=== PATIENT | female | born 1995 | race Caucasian/White ===

== ENCOUNTER 2022-02-12 02:13 | Emergency (ER) | payer BC, SELFPAY ==
[2022-02-12 02:14] VITALS: BP 145/99; PULSE 114; RESP 15; TEMP 36.3; O2SAT 99; BMI 33.1
--- NOTE | 2022-02-12 02:46 | ED.VIS.GI ---
HPI HPI - GI History of Present Illness Chief Complaint: Complaint Informant: patient Abdominal Pain/Flank Pain Onset: Days (3-4) Context: Sudden Onset Timing: Continuous Quality: Aching, Cramping and - (Pressure) Location: RLQ and LLQ Worsened by: Nothing Relieved by: Nothing Nausea/Vomiting/Emesis GI Symptom: Negative for Nausea or Vomiting Diarrhea/Melena/Hematochezia GI Symptom: Negative for Diarrhea, Melena or Hematochezia Associated Symptoms Associated Symptoms: Positive for Frequency and Urgency; Negative for Dysuria or Hematuria Narrative Narrative: Patient presents with lower abdominal pain that has been getting worse over the last 3 to 4 days. Patient states it began rather suddenly. Patient states it has been constant. Patient describes as aching, pressure, and cramping. Patient states it is over her lower abdomen and radiates into her back. Patient states nothing makes it worse and nothing makes it better. Patient denies any nausea or vomiting. Patient denies any diarrhea. Patient admits to some urinary frequency and urgency. Patient denies any abnormal vaginal bleeding or discharge. PFSH PFSH Medical History no medical history no medical history Home Medications NK 02/12/22 [History Last Taken Unknown] Allergy/AdvReac Type Severity Reaction Status Date / Time No Known Allergies Allergy Verified 02/12/22 02:18 Surgical History no surgical history no surgical history Social History Smoking Status: Never smoker ROS ROS ED Constitutional Constitutional ED: Denies chills or fever(s) Eyes Eyes: Denies blurry vision or change in vision ENT ENT ED: Denies rhinorrhea or sore throat Cardiovascular Cardiovascular: Denies chest pain or palpitations Respiratory/Chest Respiratory/Chest: Denies cough or dyspnea Gastrointestinal Gastrointestinal: Reports abdominal pain; Denies nausea or vomiting Genitourinary Genitourinary ED: Reports urinary frequency; Denies dysuria or hematuria Musculoskeletal Musculoskeletal: Reports back pain; Denies neck pain Integumentary Denies abscess or rash Neurologic Neurologic: Denies headache(s) or weakness Allergic/Immunologic Allergic/Immunologic ED: Denies mouth swelling or urticaria EXAM Physical Exam Const Vital Signs: 02/12/22 02:14 Temperature 97.4 F L Temperature Source Oral Pulse Rate 114 H Respiratory Rate 15 Blood Pressure 145/99 H Blood Pressure Mean 114 Pulse Ox 99 Oxygen Delivery Method Room Air Positive well nourished and well developed General Appearance ED: well developed HEENT Reports moist mucous membranes Neck supple and no JVD Resp normal respiratory effort and clear to auscultation bilaterally Cardio regular rate, regular rhythm and no murmurs GI normal to inspection, nondistended, normoactive bowel sounds Palpation: soft and tender LLQ, RLQ, LUQ and suprapubic; Negative for guarding or rebound tenderness present Extremity normal to inspection Neuro oriented x3, CN's II-XII intact bilaterally and no sensory deficits noted Sensorium / Orientation: alert Motor Exam: strength 5/5 throughout Psych mental status grossly normal Skin no rashes or lesions noted MDM MDM MDM Narrative Medical decision making narrative: Patient was given IV fluids. CBC shows a mild leukocytosis of 12.8. Comprehensive metabolic profile was within normal limits. Serum hCG was negative. Urinalysis shows positive nitrates. Leukocyte esterase was 25. There is 0-5 white blood cells and rare bacteria. There is also rare yeast. Urine culture was ordered. CT scan of the abdomen and pelvis was obtained. There is a right ovarian cyst. There is epiploic appendagitis anterior to the descending colon. This was interpreted by the radiologist and reviewed by myself. Patient was advised of her findings. Patient was instructed to drink plenty of fluids. Patient was instructed to take Tylenol or ibuprofen as needed for pain. Patient was instructed to return if worse in any way. Patient understood and was agreeable with the plan. All questions were answered. Lab Data Attestation: I reviewed the patient's lab results. Labs: Laboratory Results - last 24 hr 02/12/22 02/12/22 02/12/22 03:16 03:16 03:16 WBC 12.8 H RBC 4.48 Hgb 13.6 Hct 40.4 MCV 90.2 MCH 30.4 MCHC 33.7 RDW Std Deviation 42.1 RDW Coeff of Jose 12.8 Plt Count 301 MPV 11.0 Immature Gran % (Auto) 0.300 Neut % (Auto) 53.5 Lymph % (Auto) 37.9 [place] % (Auto) 6.7 Eos % (Auto) 1.2 Baso % (Auto) 0.4 Absolute Neuts (auto) 6.9 Absolute Lymphs (auto) 4.85 H Nucleated RBC % 0 Sodium 140 Potassium 3.8 Chloride 106 Carbon Dioxide 27.0 Anion Gap 7 BUN 10 Creatinine 0.95 Estim Creat Clear Calc 97.89 Est GFR (MDRD) Af Amer 92 Est GFR (MDRD) Non-Af 76 BUN/Creatinine Ratio 10.6 Glucose 115 H Calcium 9.9 Total Bilirubin 0.20 AST 12 L ALT 24 Alkaline Phosphatase 60 Total Protein 7.6 Albumin 4.0 Globulin 3.6 Albumin/Globulin Ratio 1.1 Serum , Qual NEGATIVE Urine Color Urine Clarity Urine pH Ur Specific [place] Urine Protein Urine Glucose (UA) Urine Ketones Urine Occult Blood Urine Nitrite Urine Bilirubin Urine Urobilinogen Ur Leukocyte Esterase Urine RBC Urine WBC Ur Squamous Epith Cells Urine Bacteria Urine Mucus Urine Yeast 02/12/22 03:35 WBC RBC Hgb Hct MCV MCH MCHC RDW Std Deviation RDW Coeff of Jose Plt Count MPV Immature Gran % (Auto) Neut % (Auto) Lymph % (Auto) [place] % (Auto) Eos % (Auto) Baso % (Auto) Absolute Neuts (auto) Absolute Lymphs (auto) Nucleated RBC % Sodium Potassium Chloride Carbon Dioxide Anion Gap BUN Creatinine Estim Creat Clear Calc Est GFR (MDRD) Af Amer Est GFR (MDRD) Non-Af BUN/Creatinine Ratio Glucose Calcium Total Bilirubin AST ALT Alkaline Phosphatase Total Protein Albumin Globulin Albumin/Globulin Ratio Serum , Qual Urine Color Anju Urine Clarity Clear Urine pH 6.0 Ur Specific [place] 1.020 Urine Protein 15 H Urine Glucose (UA) Normal Urine Ketones Negative Urine Occult Blood 10 H Urine Nitrite Positive H Urine Bilirubin 3 H Urine Urobilinogen 8 H Ur Leukocyte Esterase 25 H Urine RBC 0-5 SEEN Urine WBC 0-5 SEEN Ur Squamous Epith Cells 0-5 SEEN Urine Bacteria RARE Urine Mucus 0 SEEN Urine Yeast RARE Radiography Diagnostic Testing: Clinical Impression(s) from Imaging Studies Abdomen/Pelvis CT 02/12/22 04:09 IMPRESSION: Normal appendix. Small involuting right ovarian cyst with minimal associated free fluid in the dependent portion of the pelvis. Findings of epiploic appendagitis adjacent to the distal descending colon, a benign, self-limited process associated with pain. Electronically Signed: Bereket Figueroa MD at 6:15 EST , Discharge Plan Triage Chief Complaint: Complaint ED Provider: Wilmer Cortes Dx/Rx/DC Orders Clinical Impression: Ovarian cyst, Abdominal pain, Epiploic appendagitis Instructions: ED Abdominal Pain Unkn Cause Fem, ED Ovarian Cyst Prescriptions: No Action NK Primary Care Provider: Sanna Solano Referrals: Sanna Solano, PA-C [Primary Care Provider] - 5-7 Days Disposition Disposition: Home, Self Care
[2022-02-12] MEDS: 0.9% Normal Saline 1,000 ML 1000 ML IV (03:16)
[2022-02-12 03:34] LABS: Absolute Lymphocyte Count 4.85 X10^3/uL (0.83-4.51); Absolute Neutrophil Count 6.9 X10^3/uL (2.0-7.7); Basophil# 0.05 X10^3/uL; Basophil% 0.4 % (0-1); Eosinophil# 0.15 X10^3/uL; Eosinophils% 1.2 % (0-5); Hematocrit 40.4 % (37-47); Hemoglobin 13.6 g/dL (12.0-15.0); Lymphocyte # 4.85 X10^3/ul (0.83-4.51); Lymphocyte % 37.9 % (19-41); Mean Corp Hgb Conc 33.7 g/dL (32-36); Mean Corpuscular Hgb 30.4 pg (27.0-32.0); Mean Corpuscular Volume 90.2 fL (81-99); Monocyte# 0.86 X10^3/uL; Monocyte% 6.7 % (0-10); NRBC Flagged by Analyzer 0 % (0-5); Neutrophil # 6.86 X10^3/uL (2.7-7.7); Neutrophil % 53.5 % (47-70); Platelet Count 301 K/mm3 (150-450); RBC Distribution Width CV 12.8 % (11.6-14.6); RBC Distribution Width SD 42.1 fl (35.1-43.9); Red Blood Count 4.48 M/mm3 (4.2-5.4); White Blood Count 12.8 K/mm3 (4.4-11.0)
[2022-02-12 03:44] LABS: Mucous, Urine 0 SEEN /hpf (<or=2+)
[2022-02-12 03:45] LABS: Internal QC Validated? YES +Cl - CLEAR BKGD; Pregnancy, Serum, hCG Quali. NEGATIVE Negative
[2022-02-12 03:48] LABS: ALB/GLOB Ratio 1.1 RATIO (0.9-2.4); AST(SGOT) 12 U/L (15-37); Alanine Aminotransfer ALT/SGPT 24 U/L (13-56); Alkaline Phosphatase 60 U/L (45-117); Anion Gap 7 (5-15); BUN 10 mg/dL (7-18); BUN/Creat Ratio 10.6 RATIO (10-20); Calcium,Total 9.9 mg/dL (8.5-10.1); Chloride 106 mmol/L (98-107); Creatinine, Serum 0.95 mg/dL (0.55-1.02); EST Glomerular Filtration Rate 76 mL/min (>60); Est Glom Filt Rate - Afr Amer 92 mL/min (>60); Estimated Creatinine Clearance 97.89 ml/min; Globulin 3.6 g/dL (2.2-4.2); Glucose 115 mg/dL (74-106); Potassium 3.8 mmol/L (3.5-5.1); Protein, Total 7.6 g/dL (6.4-8.2); Sodium Level 140 mmol/L (136-145)
[2022-02-12 03:56] LABS: Color, Urine Amber (Yellow); Glucose, Dipstick Normal (Normal); Ketone-Dipstick Negative (Negative); Leukocyte Esterase-Dipstick 25 /ul (Negative); Nitrite-Dipstick Positive (Negative); Occult Blood-Urine 10 /ul (Negative); Protein-Dipstick 15 mg/dl (Negative); Urine Clarity Clear (Clear); Urine Urobilinogen 8 mg/dl (Normal)
[2022-02-12 04:05] LABS: Urine Bilirubin Dipstick 3 mg/dL (Negative)
[2022-02-12 04:06] LABS: Bacteria RARE /hpf (None Seen); Red Blood Cells-Urine 0-5 SEEN /hpf (0-5); Squamous Epithelial Cells - UA 0-5 SEEN /hpf (5-10); White Blood Cells 0-5 SEEN /hpf (0-5); Yeast-Urine RARE /hpf (None Seen)
--- NOTE | 2022-02-12 04:09 | CT_ITS ---
EXAM: CT ABDOMEN AND PELVIS WITH INTRAVENOUS CONTRAST CLINICAL INDICATION: Abdominal pain -- IV PO Contrast TECHNIQUE: Helically acquired images were obtained of the abdomen and pelvis with intravenous contrast. This CT exam was performed using one or more of the following dose reduction techniques: automated exposure control, adjustment of the mA and/or kV according to patient size, and/or use of iterative reconstruction technique. This report was created using [employer] report generation technology. CONTRAST: Oral and amp; IV Gastrografin and amp; 75mL [id number]-[id number] RADIATION DOSE: Total DLP: 1223.32 mGy-cm. COMPARISON: None. FINDINGS: LOWER THORAX: Minimal dependent atelectasis noted at the left lung base. No pleural effusion. No significant pericardial effusion. No coronary artery calcification is visualized. ABDOMEN: LIVER: Unremarkable. Homogeneous. No focal mass. GALLBLADDER AND BILE DUCTS: Unremarkable. No calcified gallstones. No gallbladder distention or wall edema. No intra- or extrahepatic biliary ductal dilation. PANCREAS: Unremarkable. No focal cystic or solid mass. SPLEEN: Unremarkable. Normal size without focal cystic or solid mass. ADRENALS: Unremarkable. No nodules. KIDNEYS AND URETERS: Unremarkable. Normal renal size and position. No hydronephrosis. No renal or obstructing ureteral stones. STOMACH AND BOWEL: Stomach is decompressed. No periduodenal inflammatory changes. Oral contrast passes through the small bowel into the proximal colon. Moderate amount of formed stool noted within the transverse and ascending colon. No stomach or bowel distention. An ovoid fat lobule with a soft tissue rim and mild surrounding fat stranding noted just anterior to the distal descending colon, indicating epiploic appendagitis. No findings of small bowel obstruction, colitis or diverticulitis. PELVIS: APPENDIX: No evidence of acute appendicitis. Retrocecal in location. BLADDER: Unremarkable. REPRODUCTIVE: Normal size uterus and ovaries. The right ovary contains a 1.8 cm ring enhancing cystic focus indicating an involuting cyst. ABDOMEN and PELVIS: INTRAPERITONEAL SPACE: Minimal low-density free fluid in the dependent portion of pelvis, most likely due to leakage from the collapsing right ovarian cyst. No active contrast extravasation. No free air. BONES/JOINTS: Unremarkable. No suspicious lytic or blastic abnormality. SOFT TISSUES: Unremarkable. No discrete abdominal or pelvic wall hernia. VASCULATURE: Unremarkable. Abdominal aorta is non-dilated. LYMPH NODES: Scattered tiny nonspecific mesenteric lymph nodes are present. No enlarged lymph nodes. No findings of mesenteric adenitis. CT/Abdomen/Pelvis WITH Contrast IMPRESSION: Normal appendix. Small involuting right ovarian cyst with minimal associated free fluid in the dependent portion of the pelvis. Findings of epiploic appendagitis adjacent to the distal descending colon, a benign, self-limited process associated with pain. Electronically Signed: Bereket Figueroa MD at 6:15 EST ,
== END 2022-02-12 06:42 | disposition home or self-care (01) ==
PROVIDERS: Emergency Provider Emergency Medicine; PCP Family Medicine; Visit Provider Emergency Medicine
DX: N83.201 Unspecified ovarian cyst, right side (principal); R10.32 Left lower quadrant pain; R10.31 Right lower quadrant pain
CPT/HCPCS: 74177; 80053; 81001; 84703; 85025; 87086; 87088; 96360; 96361; 99282; J7030; Q9967

== ENCOUNTER → 2022-03-10 | Outpatient (CLI) | payer BC, SELFPAY ==
[2022-03-10 17:19] LABS: Hemoglobin A1c 5.3 % (3.8-5.6)
[2022-03-10 17:34] LABS: Rubella IgG Reactive (Nonreactive)
[2022-03-10 17:35] LABS: Follicle Stimulating Hormone 4.6 mIU/mL; Free T3 2.7 pg/mL (2.18-3.98); Luteinizing Hormone 17.9 mIU/mL; Prolactin 14.2 ng/mL; T4 Free Direct 0.75 ng/dL (0.76-1.46)
[2022-03-12 14:06] LABS: V-Zoster IgG (Immunity) < 135 index (Immune >165)
== END | disposition home or self-care (01) ==
PROVIDERS: PCP Family Medicine; Visit Provider Student in an Organized Health Care Education/Training Program
DX: N97.9 Female infertility, unspecified (principal)
CPT/HCPCS: 36415; 82670; 83001; 83002; 83036; 84146; 84439; 84443; 84481; 86762; 86787

== ENCOUNTER → 2022-03-14 | Outpatient (CLI) | payer BC, SELFPAY ==
[2022-03-14 14:04] LABS: Progesterone Level 8.61 ng/mL (See Comment)
== END | disposition home or self-care (01) ==
LOC: WOBLAB 13:06
PROVIDERS: PCP Family Medicine; Visit Provider Student in an Organized Health Care Education/Training Program
DX: N97.9 Female infertility, unspecified (principal)
CPT/HCPCS: 36415; 84144

== ENCOUNTER → 2022-03-31 | Outpatient (CLI) | payer BC, SELFPAY ==
[2022-03-31 14:09] LABS: T4 Free Direct 0.88 ng/dL (0.76-1.46); Thyroid Stim Hormone (TSH) 1.26 uIU/mL (0.358-3.74)
== END | disposition home or self-care (01) ==
LOC: WOBLAB 12:09
PROVIDERS: PCP Family Medicine; Visit Provider Student in an Organized Health Care Education/Training Program
DX: N97.9 Female infertility, unspecified (principal)
CPT/HCPCS: 36415; 84439; 84443

== ENCOUNTER → 2022-04-25 | Outpatient (CLI) | payer BC, SELFPAY ==
--- NOTE | 2022-04-25 11:50 | RAD_ITS ---
STUDY: HYSTEROSALPINGOGRAM. REASON FOR EXAM: Female, 26 years old. INFERTILITY FLUOROSCOPY TIME (if supplied): ( 12 seconds ) minutes/seconds. 2 images were submitted. TECHNIQUE: A hysterosalpingogram was performed by the supervisor diagnostic. Imaging was provided. COMPARISON: None. FINDINGS: The uterus is unremarkable. Both fallopian tubes were opacified with free spill. RAD/Salpingogram IMPRESSION: Unremarkable hysterosalpingogram. Electronically Signed: Dima Kilgore MD at 12:46 EST ,
== END | disposition home or self-care (01) ==
PROVIDERS: PCP Family Medicine; Referring Provider Student in an Organized Health Care Education/Training Program; Visit Provider Student in an Organized Health Care Education/Training Program
DX: N97.9 Female infertility, unspecified (principal)
CPT/HCPCS: 58340; 74740; Q9967

== ENCOUNTER → 2022-08-15 | Outpatient (CLI) | payer BC, SELFPAY ==
[2022-08-17 08:08] LABS: V-Zoster IgG (Immunity) < 135 index (Immune >165)
== END | disposition home or self-care (01) ==
LOC: WOBLAB 14:16
PROVIDERS: PCP Family Medicine; Visit Provider Student in an Organized Health Care Education/Training Program
DX: N97.9 Female infertility, unspecified (principal)
CPT/HCPCS: 36415; 84439; 84443; 86787